=== PATIENT | male | born 1940 | race Caucasian/White ===

== ENCOUNTER → 2022-07-05 | Outpatient (CLI) | payer OTHER | END | disposition home or self-care (01) | LOC: RAH 14:36 | PROVIDERS: ATTEND Internal Medicine | DX: J44.9 Chronic obstructive pulmonary disease, unspecified (principal) | CPT/HCPCS: 71250 ==

== ENCOUNTER → 2023-01-04 | Outpatient (CLI) | payer OTHER | END | disposition home or self-care (01) | LOC: SHCH 14:21 | PROVIDERS: ATTEND Internal Medicine Cardiovascular Disease | DX: I87.2 Venous insufficiency (chronic) (peripheral) (principal) | CPT/HCPCS: 93970 ==

== ENCOUNTER → 2023-12-31 | Outpatient (CLI) | payer OTHER | END | disposition home or self-care (01) | LOC: RAH 13:24 | PROVIDERS: ATTEND Chiropractor | DX: I08.3 Combined rheumatic disorders of mitral, aortic and tricuspid valves (principal); J44.9 Chronic obstructive pulmonary disease, unspecified; I25.9 Chronic ischemic heart disease, unspecified | CPT/HCPCS: 71046; 93306 ==

== ENCOUNTER → 2024-01-27 | Outpatient (CLI) | payer OTHER ==
--- NOTE | 2024-01-27 10:35 | EKG ---
Test Date: 2024-01-27 Test Time: 11:14:58 Pat Name: KRISTIAN AMEZQUITA Department: LAB Patient ID: [facility] [id number] Room: Gender: M Director Of Employee Development: [id number] : 1940 Requested By: BARBARA COLEY Order Number: [id number] Reading MD: Venkat Starr Measurements Intervals [place] Rate: 53 P: 17 ND: 149 QRS: 89 QRSD: 100 T: 19 QT: 438 QTc: 410 Interpretive Statements Sinus rhythm ST elevation, consider anterolateral injury vs early repolarization No previous ECG available for comparison Electronically Signed On 01-27-2024 13:43:30 SOUBRETTE by Venkat Starr Please click the below link to view image of tracing.
== END | disposition home or self-care (01) ==
LOC: LAB 09:51
PROVIDERS: ATTEND Chiropractor
DX: R94.31 Abnormal electrocardiogram [ECG] [EKG] (principal); I10 Essential (primary) hypertension
CPT/HCPCS: 93005